=== PATIENT | female | born 1935 | race Caucasian/White ===

== ENCOUNTER 2020-01-08 22:28 | Emergency (ER) | payer MEDICARE, OTHER ==
--- NOTE | 2020-01-08 22:57 | ER Document Report ---
ED General - General Chief Complaint: Head Injury Stated Complaint: HEAD INJURY Time Seen by Provider: 01/08/20 22:57 Mode of Arrival: Ambulatory Information source: Patient, Relative - Daughter Notes: 84-year-old female patient presents emergency department after falling tonight. Patient reports she was standing in the shower when she slipped. She fell striking her head on a cast iron tub. She is reporting pain to the back of her head. She denies any dizziness prior to the incident, denies any loss of consciousness, nausea or vomiting. She does take Eliquis twice daily. Her primary care provider is in [place]. Her daughter is at the bedside with her. Past Medical History - General Information source: Patient - Social History Smoking Status: Never Smoker Frequency of alcohol use: None Drug Abuse: None Family History: Reviewed & Not Pertinent - Past Medical History Cardiac Medical History: Reports: Hx Atrial Fibrillation, Hx Hypercholesterolemia, Hx Hypertension Past Surgical History: Reports: Hx Cardiac Surgery Physical Exam - Vital signs Vitals: Resp 17 01/08/20 22:38 - Notes Notes: PHYSICAL EXAMINATION: GENERAL: Well-appearing, well-nourished, appears younger than stated age and in no acute distress. HEAD: Atraumatic, normocephalic. See skin assessment EYES: Pupils equal round and reactive to light, extraocular movements intact, conjunctiva are normal. ENT: Nares patent, oropharynx clear without exudates. Moist mucous membranes. NECK: Normal range of motion, supple without lymphadenopathy LUNGS: Breath sounds clear to auscultation bilaterally and equal. No wheezes rales or rhonchi. HEART: Regular rate and rhythm without murmurs ABDOMEN: Soft, nontender, nondistended abdomen. No guarding, no rebound. No masses appreciated. Female : deferred Musculoskeletal: No pitting or edema. No cyanosis. Normal range of motion to all extremities. Pelvis stable. NEUROLOGICAL: Cranial nerves grossly intact. Normal speech, normal gait. Normal sensory, motor exams PSYCH: Normal mood, normal affect. SKIN: 3 cm laceration noted over right elbow. Approximates well, no active b leeding noted. 2 cm laceration noted to posterior scalp, approximates well, no active bleeding noted. Course - Re-evaluation Re-evalutation: 01/08/20 23:28 Very well-appearing 84-year-old female presenting after a slip and fall. She is on Eliquis and did strike her head. She is complaining of pain to the back of her head but has no other complaints. She has been ambulatory since the fall and denies any extremity pain or pain with ambulation. She is being sent for CT of the head and C-spine. Nursing has sent basic labs down for evaluation. She has never been to our facility as she is here visiting from [place]. She does have a scalp laceration as well as an elbow laceration that are both in need of repair. She is alert, oriented, laughing and joking in the room. Her daughter accompanies her. There is no acute distress noted. - Vital Signs Vital signs: Temp Pulse Resp BP Pulse Ox 98.1 F 65 18 129/71 H 99 01/09/20 01:59 01/09/20 01:59 01/09/20 01:59 01/09/20 01:59 01/09/20 01:59 - Laboratory Result Diagrams: 01/08/20 22:40 01/08/20 22:40 Laboratory results interpreted by me: 01/08/20 01/08/20 01/08/20 22:40 22:40 22:40 RDW 14.7 H Plt Count 147 L PT 19.3 H BUN 40 H Creatinine 1.36 H Est GFR ( Amer) 45 L Est GFR (MDRD) Non-Af 37 L Glucose 116 H Calcium 10.7 H Procedures - Laceration/Wound Repair posterior scalp Wound length (cm): 2 Wound's Depth, Shape: Irregular Anesthetic type: 1% Lidocaine Wound explored: Clean Wound Debrided: Minimal Wound Repaired With: Alphonse - x5 right elbow Wound length (cm): 3 Wound's Depth, Shape: Superficial Laceration pre-procedure: Sterile PPE donned Anesthetic type: 1% Lidocaine Wound Repaired With: Sutures Suture Size/Type: 4:0 Number of Sutures: 7 Discharge - Discharge Clinical Impression: Head injury Qualifiers: Encounter type: initial encounter Qualified Code(s): S09.90XA - Unspecified injury of head, initial encounter Scalp laceration Qualifiers: Encounter type: initial encounter Qualified Code(s): S01.01XA - Laceration without foreign body of scalp, initial encounter Laceration of right elbow Qualifiers: Encounter type: initial encounter Qualified Code(s): S51.011A - Laceration without foreign body of right elbow, initial encounter Condition: Stable Disposition: HOME, SELF-CARE Additional Instructions: Your lab work and CT scans today were reassuring. We did not find any acute abnormality. Apply a thin layer of triple antibiotic ointment to the elbow laceration twice daily. Keep covered. Watch for signs of infection to include redness, foul drainage, warmth or development of fever. Return if any of these occur. The sutures need to be removed in 7 to 10 days. The scalp laceration was closed with alphonse. There is no special care for these. You may wash your hair as usual just be cautious. These need to be removed in 7 days. You may have mild concussive symptoms such as headache, nausea, mild dizziness, difficulty focusing. You may take Tylenol for any pain or headache. Return to the emergency department immediately if you develop worsening symptoms such as projectile vomiting, altered mental status or if you pass out. Please call and let your doctor in [place] know that you were seen in the emergency department for head injury. I have enclosed a copy of your CAT scans for your records.
[2020-01-08] MEDS ORDERED: LIDOCAINE 1% INJ-PF (10 MG/ML) 30 ML SDV INJ ONE (23:19)
[2020-01-08] MEDS ORDERED: ACETAMINOPHEN 325 MG TABLET PO ONE (23:20)
[2020-01-08] MEDS ORDERED: LIDOCAINE 4%/TETRACAINE 0.5%/EPI 0.18% 5 ML TOPICAL SOLN TOP ONE (23:21)
[2020-01-08 23:33] LABS: ABSOLUTE BASOPHILS # (AUTO) 0.1 10^3/uL (0.0-0.2); ABSOLUTE EOSINOPHILS # (AUTO) 0.1 10^3/uL (0.0-0.6); ABSOLUTE LYMPHOCYTES (AUTO) 1.1 10^3/uL (0.5-4.7); ABSOLUTE MONOCYTES (AUTO) 0.6 10^3/uL (0.1-1.4); ABSOLUTE NEUT (AUTO) 4.3 10^3/uL (1.7-8.2); BASOPHILS % (AUTO) 1.1 % (0-2); HEMATOCRIT 40.3 % (36.0-47.0); HEMOGLOBIN 14.1 g/dL (12.0-15.5); LYMPHOCYTES % (AUTO) 17.8 % (13-45); MEAN CORPUSCULAR HEMOGLOBIN 31.7 pg (27.0-33.4); MEAN CORPUSCULAR HGB CONC 34.9 g/dL (32.0-36.0); MEAN CORPUSCULAR VOLUME 91 fl (80-97); MONOCYTES % (AUTO) 10.1 % (3-13); PLATELET COUNT 147 10^3/uL (150-450); RED BLOOD COUNT 4.43 10^6/uL (3.72-5.28); RED CELL DISTRIBUTION WIDTH 14.7 % (11.5-14.0); TOTAL CELLS COUNTED % (AUTO) 100 %; WHITE BLOOD COUNT 6.2 10^3/uL (4.0-10.5)
[2020-01-08 23:35] LABS: INTERNATIONAL RATION (INR) 1.61; PROTHROMBIN TIME 19.3 SEC (11.4-15.4)
[2020-01-08 23:36] LABS: PARTIAL THROMBOPLASTIN TIME 31.9 SEC (23.5-35.8)
--- NOTE | 2020-01-09 00:03 | RADIOLOGY REPORT (SQ) ---
CLINICAL HISTORY: fall, head trauma COMPARISON: None. TECHNIQUE: CT HEAD WITHOUT IV CONTRAST on 01/08/2020 11:18 PM CDT This exam was performed according to our departmental dose-optimization program, which includes automated exposure control, adjustment of the mA and/or kV according to patient size and/or use of iterative reconstruction technique. FINDINGS: There is no acute hemorrhage, mass effect or midline shift. Adams-white differentiation is preserved. There is no hydrocephalus. There is no significant volume loss for age. The calvarium is intact. Orbits and globes are unremarkable. The paranasal sinuses are clear. Mastoid air cells are clear. IMPRESSION: No acute intracranial findings.
--- NOTE | 2020-01-09 00:04 | RADIOLOGY REPORT (SQ) ---
CLINICAL HISTORY: fall, head trauma COMPARISON: None. TECHNIQUE: CT CERVICAL SPINE WITHOUT IV CONTRAST on 01/08/2020 11:18 PM CDT This exam was performed according to our departmental dose-optimization program, which includes automated exposure control, adjustment of the mA and/or kV according to patient size and/or use of iterative reconstruction technique. FINDINGS: There is no acute fracture. Vertebral body heights are preserved. Alignment is anatomic. 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 Disc spaces are maintained. Soft tissues are unremarkable. IMPRESSION: No acute fracture or subluxation.
[2020-01-09 00:19] LABS: ALBUMIN 4.2 g/dL (3.5-5.0); ALKALINE PHOSPHATASE 55 U/L (38-126); ANION GAP 11 (5-19); ASPARTATE AMINO TRANSFERASE 25 U/L (14-36); BILIRUBIN,DIRECT 0.4 mg/dL (0.0-0.4); BILIRUBIN,TOTAL 0.6 mg/dL (0.2-1.3); BLOOD UREA NITROGEN 40 mg/dL (7-20); CALCIUM 10.7 mg/dL (8.4-10.2); CARBON DIOXIDE 27 mmol/L (22-30); CHLORIDE 102 mmol/L (98-107); GLUCOSE 116 mg/dL (75-110); POTASSIUM 3.6 mmol/L (3.6-5.0); TOTAL PROTEIN 6.8 g/dL (6.3-8.2)
[2020-01-09 02:01] VITALS: BP 129/71
--- NOTE | 2020-01-09 20:20 | EKG REPORT ---
SEVERITY:- ABNORMAL ECG - VENTRICULAR-PACED RHYTHM : Confirmed by: John Morejon MD 09-Jan-2020 20:19:27
== END 2020-01-09 01:59 | disposition home or self-care (01) ==
LOC: ER 22:28
PROC: 0HQ0XZZ Repair Scalp Skin, External Approach (ICD-10-PCS; principal; 2020-01-08)
PROC: 0HQDXZZ Repair Right Lower Arm Skin, External Approach (ICD-10-PCS; 2020-01-08)
DX: S01.01XA Laceration without foreign body of scalp, initial encounter (principal); S51.011A Laceration without foreign body of right elbow, initial encounter; S09.90XA Unspecified injury of head, initial encounter; W18.2XXA Fall in (into) shower or empty bathtub, initial encounter; Z79.01 Long term (current) use of anticoagulants; I48.91 Unspecified atrial fibrillation; I10 Essential (primary) hypertension
CPT/HCPCS: 12002; 93005; 99285; 36415; 85025; 85610; 85730; 80053; 70450; 72125; 93010; A9270; J3490

== ENCOUNTER 2020-01-14 09:41 | Emergency (ER) | payer MEDICARE, OTHER ==
[2020-01-14 09:51] VITALS: BP 135/77
--- NOTE | 2020-01-14 10:23 | ER Document Report ---
HPI - HPI Patient complains to provider of: suture and staple removal Time Seen by Provider: 01/14/20 10:16 Pain Level: Denies Notes: 84-year-old female to the emergency department for staple removal to her head and to her right elbow. She had these placed 1 week ago. She states she fell as she was getting out of the shower. She states it is been healing well. She is on Eliquis. She states she has no other complaints today. - ROS Systems Reviewed and Negative: Yes All other systems reviewed and negative - CONSTITUTIONAL Constitutional: DENIES: Fever, Chills - EENT EENT: DENIES: Sore Throat, Ear Pain, Congestion - NEURO Neurology: DENIES: Headache, Weakness, Vision blurred, Dizzinesss / Vertigo - CARDIOVASCULAR Cardiovascular: DENIES: Chest pain - RESPIRATORY Respiratory: DENIES: Trouble Breathing, Coughing - GASTROINTESTINAL Gastrointestinal: DENIES: Abdominal Pain, Nausea, Patient vomiting, Diarrhea - DERM Skin Color: Normal Skin Problems: Laceration - See HPI Past Medical History - General Information source: Patient - Social History Smoking Status: Never Smoker Chew tobacco use (# tins/day): No Frequency of alcohol use: None Drug Abuse: None Family History: Reviewed & Not Pertinent Patient has homicidal ideation: No - Past Medical History Cardiac Medical History: Reports: Hx Atrial Fibrillation, Hx Hypercholesterolemia, Hx Hypertension Past Surgical History: Reports: Hx Cardiac Surgery Vertical Provider Document - CONSTITUTIONAL Agree With Documented VS: Yes Exam Limitations: No Limitations General Appearance: WD/WN, No Apparent Distress - HEENT HEENT: Normocephalic, PERRLA Notes: 5 alphonse in the posterior scalp. The wound appears to be healing very well. There is no tenderness to palpation and no purulent drainage. There is no erythema or edema. - NECK Neck: Normal Inspection, Supple - RESPIRATORY Respiratory: Breath Sounds Normal, No Respiratory Distress. negative: Rales, Rhonchi, Wheezing - CARDIOVASCULAR Cardiovascular: Regular Rate, Regular Rhythm, No Murmur - GI/ABDOMEN Gastrointestinal: Abdomen Soft, Abdomen Non-Tender, No Organomegaly - BACK Back: Normal Inspection - MUSCULOSKELETAL/EXTREMETIES Musculoskeletal/Extremeties: MAEW, FROM, Non-Tender - NEURO Level of Consciousness: Awake, Alert, Appropriate - DERM Integumentary: Warm, Dry, Laceration - There is a healing laceration to the right elbow with [address]. Laceration is healing quite nicely with no erythema, purulence, edema or tenderness to palpation Course - Re-evaluation Re-evalutation: Impression: Stable removal and suture removal. To aid admits to further healing. Encouraged patient to return if any worsening symptoms. We will have her follow-up with primary care. Wounds appear to be healing quite nicely. Have applied Steri-Strips to the elbow she and her daughter at bedside agree - Vital Signs Vital signs: Temp Pulse Resp BP Pulse Ox 97.6 F 62 16 135/77 H 98 01/14/20 09:45 01/14/20 09:45 01/14/20 09:45 01/14/20 09:45 01/14/20 09:45 Procedures - Additional Procedures suture and stabple removal Additional Procedures: Other - 5 sutures were removed from the posterior scalp and 7 sutures removed from the right elbow. This was performed by PCT. Areas were checked after removal and appeared well and alphonse and sutures completely removed. Discharge - Discharge Clinical Impression: Removal of staple, Encounter for removal of sutures Condition: Stable Disposition: HOME, SELF-CARE Instructions: Staple Removal ([facility]), Suture Removal Additional Instructions: Continue to monitor your wounds. Return if any worsening symptoms. Keep them clean and dry. Follow-up with primary care.
== END 2020-01-14 10:52 | disposition home or self-care (01) ==
LOC: ER 09:41
DX: S51.011D Laceration without foreign body of right elbow, subsequent encounter (principal); S01.01XD Laceration without foreign body of scalp, subsequent encounter; W19.XXXD Unspecified fall, subsequent encounter; I10 Essential (primary) hypertension; I48.91 Unspecified atrial fibrillation; Z79.01 Long term (current) use of anticoagulants